=== PATIENT | male | born 1960 | race Caucasian/White ===

== ENCOUNTER 2020-05-19 14:25 | Emergency (ER) | payer MEDICARE ==
[~2020-05-19 14:25] MED LIST: AMOXICILLIN500 M2 PO; AMOXICILLIN500 MG PO; ASPIRIN325 MG PO; ATIVAN1 MG PO; DIAZEPAM 5MG TAB5 MG PO; DICLOFENAC SODI75 MG PO; IBUPROFEN800 MG PO; LIPITOR 10MG TA10 MG PO; LOPRESSOR50 MG PO; NAPROXEN500 MG PO
[2020-05-19 15:08] LABS: BASOPHIL 0.8 % (0-2); EOSINOPHIL 2.4 % (0-5); HCT 43.2 % (42.0-52.0); HGB 14.8 g/dl (13.2-18.0); MCH 30.7 pg (25.0-31.0); MCHC 34.3 g/dL (32.0-36.0); MCV 89.6 fL (78.0-100.0); MPV 10.4 fL (6.0-9.5); NEUTROPHIL 47.7 % (41-80); NRBC 0; PLT 271 K/uL (150-400); RBC 4.82 M/uL (4.70-6.00); RDW 13.1 % (11.5-14.0); WBC 7.5 K/uL (4.0-10.5)
[2020-05-19 15:13] LABS: INR 1.02 (0.9-1.2); PROTHROMBIN TIME 12.7 SECONDS (11.4-13.6); PTT 30.1 SECONDS (22.2-34.7)
[2020-05-19 15:14] LABS: D-DIMER 0.39 ug/mLFEU (0.00-0.41)
[2020-05-19 15:20] LABS: BUN/CREAT RATIO (CALC) 22.7 RATIO; CREATININE 0.75 mg/dL (0.67-1.17); POTASSIUM 4.2 mmol/L (3.5-5.1)
[2020-05-19 15:50] LABS: CKMB <0.5 ng/mL (0.0-3.6)
[2020-05-19] MEDS ORDERED: NAPROXEN500 MG PO (16:03)
== END 2020-05-19 16:25 | disposition home or self-care (01) ==
LOC: FER 14:25
PROVIDERS: Emergency Medicine
DX: R07.89 Other chest pain (principal); I10 Essential (primary) hypertension; I48.91 Unspecified atrial fibrillation; Z88.8 Allergy status to other drugs, medicaments and biological substances; Z79.82 Long term (current) use of aspirin; Z79.899 Other long term (current) drug therapy
CPT/HCPCS: 36415; 71046; 80048; 82553; 84484; 85025; 85379; 85610; 85730; 93005

== ENCOUNTER 2020-08-03 21:29 | Emergency (ER) | payer MEDICARE ==
[2020-08-03 22:05] LABS: BASOPHIL 0.9 % (0-2); EOSINOPHIL 2.9 % (0-5); HCT 44.2 % (42.0-52.0); HGB 15.3 g/dl (13.2-18.0); LYMPHOCYTE 42.1 % (15-48); MCHC 34.6 g/dL (32.0-36.0); MCV 89.5 fL (78.0-100.0); MONOCYTE 6.1 % (0-12); MPV 10.2 fL (6.0-9.5); NEUTROPHIL 47.8 % (41-80); NRBC 0; PLT 259 K/uL (150-400); RBC 4.94 M/uL (4.70-6.00); RDW 13.1 % (11.5-14.0); WBC 8.1 K/uL (4.0-10.5)
[2020-08-03 22:25] LABS: INR 1.06 (0.9-1.2); PROTHROMBIN TIME 13.1 SECONDS (11.4-13.6); PTT 28.9 SECONDS (22.2-34.7)
[2020-08-03 22:26] LABS: D-DIMER 0.49 ug/mLFEU (0.00-0.41)
[2020-08-03 22:27] LABS: PRO-BNP 522 pg/mL (<125)
[2020-08-03 22:30] LABS: ALBUMIN 3.6 g/dL (3.4-5.0); BILIRUBIN - TOTAL 0.9 mg/dL (0.2-1.0); BUN/CREAT RATIO (CALC) 24.7 RATIO; CREATININE 0.77 mg/dL (0.67-1.17); FT4 (FREE T4) 0.9 ng/dL (0.76-1.46); GLOBULIN (CALCULATION) 3.8 g/dL; TOTAL PROTEIN 7.4 g/dL (6.4-8.2)
== END 2020-08-04 01:06 | disposition home or self-care (01) ==
LOC: FER 21:29
PROVIDERS: Emergency Medicine Emergency Medical Services
DX: I48.0 Paroxysmal atrial fibrillation (principal); R07.89 Other chest pain; I10 Essential (primary) hypertension; E78.5 Hyperlipidemia, unspecified; Z79.82 Long term (current) use of aspirin; Z79.899 Other long term (current) drug therapy; Z88.8 Allergy status to other drugs, medicaments and biological substances
CPT/HCPCS: 36415; 71045; 80053; 83880; 84439; 84443; 84484; 85025; 85379; 85610; 85730; 93005

== ENCOUNTER 2020-09-13 06:11 | Emergency (ER) | payer MEDICARE ==
[2020-09-13 06:51] LABS: BASOPHIL 0.4 % (0-2); EOSINOPHIL 1.1 % (0-5); HCT 42.9 % (42.0-52.0); HGB 14.8 g/dl (13.2-18.0); LYMPHOCYTE 29.6 % (15-48); MCH 30.5 pg (25.0-31.0); MCHC 34.5 g/dL (32.0-36.0); MCV 88.3 fL (78.0-100.0); MONOCYTE 7.8 % (0-12); MPV 10.9 fL (6.0-9.5); NEUTROPHIL 60.7 % (41-80); NRBC 0; PLT 145 K/uL (150-400); RBC 4.86 M/uL (4.70-6.00); RDW 12.8 % (11.5-14.0); WBC 5.4 K/uL (4.0-10.5)
== END 2020-09-13 08:20 | disposition home or self-care (01) ==
LOC: FER 06:11
PROVIDERS: Emergency Medicine
DX: U07.1 COVID-19 (principal); I10 Essential (primary) hypertension; I48.0 Paroxysmal atrial fibrillation; Z88.8 Allergy status to other drugs, medicaments and biological substances
CPT/HCPCS: 36415; 71045; 80048; 85025; J2930; J7030

== ENCOUNTER 2020-09-19 08:43 | Emergency (ER) | payer MEDICARE ==
[2020-09-19 09:32] LABS: BASOPHIL 0.4 % (0-2); EOSINOPHIL 1.1 % (0-5); HCT 43.3 % (42.0-52.0); HGB 15.2 g/dl (13.2-18.0); MCH 30.5 pg (25.0-31.0); MCHC 35.1 g/dL (32.0-36.0); MCV 86.9 fL (78.0-100.0); MONOCYTE 9.6 % (0-12); MPV 10.1 fL (6.0-9.5); NEUTROPHIL 54.8 % (41-80); NRBC 0; PLT 317 K/uL (150-400); RBC 4.98 M/uL (4.70-6.00); RDW 12.6 % (11.5-14.0)
[2020-09-19 09:33] LABS: LYMPHOCYTE 33.4 % (15-48)
[2020-09-19 10:05] LABS: ALBUMIN 3.2 g/dL (3.4-5.0); BILIRUBIN - TOTAL 1.6 mg/dL (0.2-1.0); BUN/CREAT RATIO (CALC) 15.9 RATIO; CREATININE 0.82 mg/dL (0.67-1.17); GLOBULIN (CALCULATION) 4.6 g/dL; POTASSIUM 3.4 mmol/L (3.5-5.1); TOTAL PROTEIN 7.8 g/dL (6.4-8.2)
[2020-09-19 12:18] LABS: INR 1.13 (0.9-1.2); PROTHROMBIN TIME 13.9 SECONDS (11.8-13.4); PTT 33.6 SECONDS (24.4-34.7)
[2020-09-19 12:33] LABS: D-DIMER 16.27 ug/mLFEU (0.00-0.41)
[2020-09-19 12:42] LABS: BILIRUBIN 2+ mg/dL (NEGATIVE); BLOOD NEGATIVE Ery/uL (NEGATIVE); CLARITY CLEAR (CLEAR); COLOR YELLOW (YELLOW); GLUCOSE (U) NORMAL (NORMAL); LEUKOCYTES NEGATIVE Leu/uL (NEGATIVE); NITRITE NEGATIVE (NEGATIVE); PROTEIN TRACE (LOW) mg/dL (NEGATIVE); UROBILINOGEN 0.2 mg/dL (0.2-1.0)
[2020-09-19 12:54] LABS: MUCOUS MODERATE
[2020-09-19 12:55] LABS: BACTERIA TRACE; URINARY RBC RARE
== END 2020-09-19 16:45 | disposition home or self-care (01) ==
LOC: FER 08:43
PROVIDERS: Emergency Medicine
DX: U07.1 COVID-19 (principal); J12.82 Pneumonia due to coronavirus disease 2019; I48.91 Unspecified atrial fibrillation; Z79.82 Long term (current) use of aspirin; Z88.8 Allergy status to other drugs, medicaments and biological substances
CPT/HCPCS: 36415; 71045; 71275; 80053; 81001; 84443; 84484; 85025; 85379; 85610; 85730; 93005; J7030

== ENCOUNTER 2020-10-14 12:37 | Emergency (ER) | payer MEDICARE ==
[2020-10-14 13:54] LABS: BASOPHIL 1.1 % (0-2); EOSINOPHIL 3.1 % (0-5); HCT 42.4 % (42.0-52.0); HGB 14.4 g/dl (13.2-18.0); LYMPHOCYTE 38.6 % (15-48); MCH 30.4 pg (25.0-31.0); MCV 89.5 fL (78.0-100.0); MONOCYTE 9.1 % (0-12); MPV 10.5 fL (6.0-9.5); NEUTROPHIL 47.8 % (41-80); NRBC 0; PLT 250 K/uL (150-400); RBC 4.74 M/uL (4.70-6.00); RDW 13.5 % (11.5-14.0); WBC 7.1 K/uL (4.0-10.5)
[2020-10-14 14:17] LABS: BUN/CREAT RATIO (CALC) 25.8 RATIO; CREATININE 0.89 mg/dL (0.67-1.17); POTASSIUM 4.3 mmol/L (3.5-5.1)
== END 2020-10-14 15:05 | disposition home or self-care (01) ==
LOC: FER 12:37
PROVIDERS: Emergency Medicine
DX: I48.20 Chronic atrial fibrillation, unspecified (principal); F41.9 Anxiety disorder, unspecified; Z88.8 Allergy status to other drugs, medicaments and biological substances
CPT/HCPCS: 36415; 71045; 80048; 84484; 85025; 93005